=== PATIENT | female | born 1980 | race Two or more races ===

== ENCOUNTER 2017-04-01 07:48 | Emergency (ER) | payer OTHER ==
[2017-04-01 07:54] VITALS: BP 138/99
== END 2017-04-01 08:30 | disposition home or self-care (01) ==
LOC: ED 07:48
DX: M54.5 Low back pain (principal); Z88.6 Allergy status to analgesic agent; Z88.5 Allergy status to narcotic agent

== ENCOUNTER 2019-09-08 06:23 | Emergency (ER) | payer OTHER ==
[~2019-09-08] VITALS: Ht 154.9 cm; Wt 89.1 kg
[2019-09-08 06:31] VITALS: BP 150/90; Ht 154.9 cm; Wt 89.1 kg
== END 2019-09-08 08:08 | disposition home or self-care (01) ==
LOC: ED 06:23
DX: H66.91 Otitis media, unspecified, right ear (principal); Z88.6 Allergy status to analgesic agent